=== PATIENT | male | born 1970 | race African-American/Black ===

== ENCOUNTER 2019-10-22 10:20 | Day surgery (SDC) | payer OTHER ==
[2019-10-18 12:07] LABS: ABSOLUTE BASOPHILS # (AUTO) 0.2 10^3/uL (0.0-0.2); ABSOLUTE EOSINOPHILS # (AUTO) 0.4 10^3/uL (0.0-0.6); ABSOLUTE MONOCYTES (AUTO) 0.9 10^3/uL (0.1-1.4); BASOPHILS % (AUTO) 1.3 % (0-2); EOSINOPHILS % (AUTO) 2.6 % (0-6); HEMATOCRIT 46.1 % (37.9-51.0); HEMOGLOBIN 15.5 g/dL (13.5-17.0); LYMPHOCYTES % (AUTO) 37.1 % (13-45); MEAN CORPUSCULAR HEMOGLOBIN 28.1 pg (27.0-33.4); MEAN CORPUSCULAR HGB CONC 33.7 g/dL (32.0-36.0); MEAN CORPUSCULAR VOLUME 83 fl (80-97); MONOCYTES % (AUTO) 6.5 % (3-13); PLATELET COUNT 316 10^3/uL (150-450); RED BLOOD COUNT 5.53 10^6/uL (4.35-5.55); RED CELL DISTRIBUTION WIDTH 13.8 % (11.5-14.0); SEGMENTED NEUTROPHILS % (AUTO) 52.5 % (42-78); TOTAL CELLS COUNTED % (AUTO) 100 %; WHITE BLOOD COUNT 13.4 10^3/uL (4.0-10.5)
[2019-10-18 12:11] LABS: INTERNATIONAL RATION (INR) 0.93; PROTHROMBIN TIME 12.5 SEC (11.4-15.4)
[2019-10-18 12:12] LABS: PARTIAL THROMBOPLASTIN TIME 26.4 SEC (23.5-35.8)
[2019-10-18 12:21] LABS: APPEARANCE,URINE CLEAR; BILIRUBIN,URINE NEGATIVE (NEGATIVE); COLOR,URINE YELLOW; GLUCOSE, URINE NEGATIVE (NEGATIVE); KETONES,URINE NEGATIVE (NEGATIVE); LEUKOCYTE ESTERASE,URINE NEGATIVE (NEGATIVE); NITRITE,URINE NEGATIVE (NEGATIVE); PROTEIN,URINE NEGATIVE (NEGATIVE); URINE SPECIFIC GRAVITY 1.011; UROBILINOGEN,URINE NEGATIVE mg/dL (<2.0)
[~2019-10-22 10:20] MED LIST: CEFAZOLIN 1 GM/D5W RTU 1 GM/50 ML RTUPB IV PRN; LACTATED RINGERS 1000 ML IV PRN; LIDOCAINE 0.5% INJ-PF (5 MG/ML) 50 ML SDV SUBCUT PRN
[2019-10-22] MEDS ORDERED: CEFAZOLIN 1 GM/D5W RTU 1 GM/50 ML RTUPB IV ONE (10:51)
[2019-10-22] MEDS ORDERED: LIDOCAINE 1% INJ-PF (10 MG/ML) 30 ML SDV ONE (12:19)
[2019-10-22] MEDS ORDERED: BUPIVACAINE HCL 0.25% /EPINEPHRINE INJ/PF 30 ML SDV ONE (12:19)
[2019-10-22] MEDS ORDERED: TRIAMCINOLONE ACETONIDE INJ 40 MG/1 ML VIAL ONE (12:19)
[2019-10-22] MEDS ORDERED: FENTANYL CITRATE INJ/PF 100 MCG/2 ML AMPUL ONE (12:26)
[2019-10-22] MEDS ORDERED: MIDAZOLAM 2 MG/2 ML INJ ONE (12:26)
[2019-10-22] MEDS ORDERED: SODIUM BICARBONATE 4.2% INJ (2.5 MEQ/5 ML) VIAL ONE (12:46)
[2019-10-22] MEDS ORDERED: ONDANSETRON HCL INJ/PF 4 MG/2 ML SDV IV PRN (12:59)
[2019-10-22] MEDS ORDERED: MEPERIDINE HCL/PF INJ 25 MG/1 ML DISP.SYRIN IV PRN (12:59)
[2019-10-22] MEDS ORDERED: OXYCODONE-ACETAMINOPHEN 5-325 MG TABLET PO PRN ×3 (12:59→14:00)
[2019-10-22] MEDS ORDERED: DIPHENHYDRAMINE HCL 50 MG/ML VIAL IV PRN (12:59)
[2019-10-22] MEDS ORDERED: FENTANYL CITRATE INJ/PF 100 MCG/2 ML AMPUL IV PRN ×3 (12:59)
[2019-10-22] MEDS ORDERED: PROMETHAZINE HCL INJ 25 MG/1 ML VIAL IV PRN ×2 (12:59)
[2019-10-22] MEDS ORDERED: MORPHINE SULFATE 10 MG/ML INJ IV PRN (12:59)
[2019-10-22] MEDS: FENTANYL CITRATE INJ/PF 100 MCG/2 ML AMPUL ONE ×2 (13:43→13:48)
--- NOTE | 2019-10-22 13:43 | Operative Report ---
Operative Report DATE OF SURGERY: 10/22/19 PREOPERATIVE DIAGNOSIS: Neurogenic claudication with lumbar spinal stenosis at L2-3 and 3 4 POSTOPERATIVE DIAGNOSIS: Same OPERATION: Minimally invasive lumbar decompression under fluoroscopic guidance at L2-3 and L3-4 using bilateral approach SURGEON: ALEXANDRA CHARLES ANESTHESIA: LMAC TISSUE REMOVED OR ALTERED: Lumbar ligamentum flavum and lumbar lamina laminotomy bone fragments COMPLICATIONS: None ESTIMATED BLOOD LOSS: Minimal PROCEDURE: After obtaining informed consent advising the patient of the risk and benefits including bleeding infection neurological injury paralysis allergic reaction and he was taken to the operating room and placed comfortably in the prone position. Monitors were applied MAC anesthesia was administered. The patient was then prepped and draped in the usual fashion over the lumbosacral spine. Fluoroscopy the lumbar spine is evaluated and the surgical sites and desired levels were identified by counting from the sacrum up and from the last rib- bearing vertebrae down to 3 and 3 4 were readily identified incisions were made above the sacral S1 pedicles on the right and left for local anesthesia with 1% lidocaine with bicarb was initially instilled. The subcutaneous tissues were then subsequently anesthetized as well with 1% lidocaine followed by quarter percent bupivacaine with epinephrine beginning on the right side on the left side mild trocar was advanced down to the lamina of L4 near the midline position just left of the spinous process of L4 white views were taken to assure appropriate . The bone rongeur was then utilized to remove bony fragments and ligament on the left side of the L3-4 interspace. Was completed the instrumentation was directed in a cephalad fashion to be position for ligamentum rib resection and bone resection at the L2-3 level. Sternal local anesthesia was applied with 1% lidocaine cane. Decompression was performed without difficulty. Left side was completed attention was directed to the right likewise beginning at the 3 4 pressure and was pursued without difficulty. Instrumentation was again redirected in a cephalad fashion for proximal 2-3. Patient did quite well completion of the decompression was performed all instrumentation was removed. The wounds were cleansed and sterile dressings were applied. He was given instructions for outpatient follow-up for tomorrow morning was likewise given to his . Indication please make sure I have a copy of this note thank you
[2019-10-22] MEDS ORDERED: OXYCODONE-ACETAMINOPHEN 5-325 MG TABLET ONE (14:30)
--- NOTE | 2019-10-22 15:22 | RADIOLOGY REPORT (SQ) ---
EXAM DESCRIPTION: NO CHG FLUORO; L SPINE 2 VIEWS IMAGES COMPLETED DATE/TIME: 10/22/2019 1:59 pm REASON FOR STUDY: MINIMALLY INVASIVE LUMBAR DECOMPRESSION ASSISTED WITH FLUOROSCOPY IN OR COMPARISON: None. FLUOROSCOPY TIME: 6 minutes 34 Images saved to PACS LIMITATIONS: None. PROCEDURE: Lumbar decompression assisted with fluoro FINDINGS: Images from fluoro document the procedure. IMPRESSION: Lumbar decompression with fluoro. Refer to operative note for further information. COMMENT: PQRS 6045F: Fluoroscopy time of the procedure is documented in the report. TECHNICAL DOCUMENTATION: JOB ID: [id number] 2010 [employer]- All Rights Reserved Reading location - IP/workstation name: [email or web address]
--- NOTE | 2019-10-22 15:22 | RADIOLOGY REPORT (SQ) ---
EXAM DESCRIPTION: NO CHG FLUORO; L SPINE 2 VIEWS IMAGES COMPLETED DATE/TIME: 10/22/2019 1:59 pm REASON FOR STUDY: MINIMALLY INVASIVE LUMBAR DECOMPRESSION ASSISTED WITH FLUOROSCOPY IN OR COMPARISON: None. FLUOROSCOPY TIME: 6 minutes 34 Images saved to PACS LIMITATIONS: None. PROCEDURE: Lumbar decompression assisted with fluoro FINDINGS: Images from fluoro document the procedure. IMPRESSION: Lumbar decompression with fluoro. Refer to operative note for further information. COMMENT: PQRS 6045F: Fluoroscopy time of the procedure is documented in the report. TECHNICAL DOCUMENTATION: JOB ID: [id number] 2010 [employer]- All Rights Reserved Reading location - IP/workstation name: [email or web address]
[2019-10-22 18:29] VITALS: BP 128/78
== END 2019-10-22 15:35 | disposition home or self-care (01) ==
LOC: OROUT 10:20
PROVIDERS: ATTEND Pain Medicine Interventional Pain Medicine
DX: M48.062 Spinal stenosis, lumbar region with neurogenic claudication (principal); Z00.6 Encounter for examination for normal comparison and control in clinical research program; I10 Essential (primary) hypertension; E78.00 Pure hypercholesterolemia, unspecified; E11.9 Type 2 diabetes mellitus without complications; Z79.4 Long term (current) use of insulin; Z88.8 Allergy status to other drugs, medicaments and biological substances
CPT/HCPCS: 0275T; 36415; 82962; 85025; 85610; 85730; 87635; 81001; 72100; J2250; J3490 ×3; J0690; J3010; C9803; C1889; J3301; Q9966